=== PATIENT | female | born 1960 | race Caucasian/White ===

== ENCOUNTER 2016-12-08 12:04 | Emergency (ER) | payer SELFPAY ==
[~2016-12-08] VITALS: Ht 167.6 cm; Wt 80.0 kg
[~2016-12-08 12:04] MED LIST: ALPR.25 PO; BUPR-197 PO; CELE10TA9 PO; HYOS0.129 SL; LISI-360 PO; LORTA5; NEXI40CA PO; OSEL75 PO; ZOFR4TAB3 SL
[2016-12-08 12:06] VITALS: BP 133/66; PULSE 86; RESP 20; TEMP 98.4; O2SAT 98
[2016-12-08] MEDS ORDERED: SODIUM CHLOR 0.9% 1000 ML INJ 1,000 ML IV SCH ×2 (12:22→12:26)
--- NOTE | 2016-12-08 12:28 | PD ---
HPI Chief Complaint: GI Complaint Time Seen by Provider: 12:12 Travel History International Travel<30 days: No Contact w/Intl Traveler<30days: No Traveled to known affect area: No History of Present Illness HPI This is a 56-year-old female who presents for evaluation nausea vomiting diarrhea. Symptoms started 5 days ago. Initially the primary symptoms were watery brown diarrhea, 6-7 episodes daily. Since then she has developed vomiting which is now become dry heaving. The diarrhea has improved and she now only has a little bit of diarrhea at a time. She feels dehydrated. She reports decreased urination. She denies abdominal pain, fevers or chills, flank pain, chest pain or shortness of breath, cough or congestion, vaginal bleeding or discharge. No sick contacts. No dietary changes. No recent travel. No recent antibiotic use. No other complaints. 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) Hysterectomy: No Social History Alcohol Use: No Tobacco Use: No Substance Use: No Allergies-Medications (Allergen,Severity, Reaction): Coded Allergies: diatrizoate meglumine (Unverified Allergy, Intermediate, SWELLING, 12/08/16) gadobenic acid (Unverified Allergy, Intermediate, SWELLING, 12/08/16) gadodiamide (Unverified Allergy, Intermediate, SWELLING, 12/08/16) gadoteridol (Unverified Allergy, Intermediate, SWELLING, 12/08/16) iodixanol (Unverified Allergy, Intermediate, SWELLING, 12/08/16) iohexol (Unverified Allergy, Intermediate, SWELLING, 12/08/16) Reported Meds & Prescriptions Reported Meds & Active Scripts Active Zofran (Ondansetron HCl) 4 Mg Tab 4 Mg PO Q6HR PRN Review of Systems Except as stated in HPI: all other systems reviewed are Neg Physical Exam Narrative GENERAL: Well-developed well-nourished female in no acute distress SKIN: Warm and dry. HEAD: Atraumatic. Normocephalic. EYES: Pupils equal and round. No scleral icterus. No injection or drainage. ENT: No nasal bleeding or discharge. Mucous membranes pink and moist. NECK: Trachea midline. No JVD. CARDIOVASCULAR: Regular rate and rhythm. No murmur appreciated. RESPIRATORY: No accessory muscle use. Clear to auscultation. Breath sounds equal bilaterally. GASTROINTESTINAL: Abdomen soft, non-tender, nondistended. Hepatic and splenic margins not palpable. MUSCULOSKELETAL: No obvious deformities. No edema. NEUROLOGICAL: Awake and alert. No obvious cranial nerve deficits. Motor grossly within normal limits. Normal speech. PSYCHIATRIC: Appropriate mood and affect; insight and judgment normal. Data Data Last Documented VS Vital Signs Date Time Temp Pulse Resp B/P (MAP) Pulse Ox O2 Delivery O2 Flow Rate FiO2 12/08/16 12:57 98.8 71 14 127/62 (83) 96 Room Air Orders Orders Complete Blood Count With Diff (12/08/16 12:22) Comprehensive Metabolic Panel (12/08/16 12:22) Lipase (12/08/16 12:22) Urinalysis - C+S If Indicated (12/08/16 12:22) Iv Access Insert/Monitor (12/08/16 12:22) Ecg Monitoring (12/08/16 12:22) Oximetry (12/08/16 12:22) Ondansetron Inj (Zofran Inj) (12/08/16 12:30) Sodium Chlor 0.9% 1000 Ml Inj (Ns 1000 M (12/08/16 12:22) Sodium Chloride 0.9% Flush (Ns Flush) (12/08/16 12:30) C Diff Toxin Pcr (12/08/16 12:22) Enteric Path (Stool) (12/08/16 12:22) Sodium Chlor 0.9% 1000 Ml Inj (Ns 1000 M (12/08/16 12:26) Oral Rehydration (12/08/16 13:27) Acetaminophen (Tylenol) (12/08/16 13:45) Metoclopramide Inj (Reglan Inj) (12/08/16 14:00) Tramadol (Ultram) (12/08/16 14:15) Labs Laboratory Tests Test 9/6/17 12:34 12/08/16 12:35 12/08/16 12:55 White Blood Count 3.8 TH/MM3 Red Blood Count 4.01 MIL/MM3 Hemoglobin 12.0 GM/DL Hematocrit 37.4 % Mean Corpuscular Volume 93.3 FL Mean Corpuscular Hemoglobin 30.0 PG Mean Corpuscular Hemoglobin Concent 32.2 % Red Cell Distribution Width 13.6 % Platelet Count 261 TH/MM3 Mean Platelet Volume 8.6 FL Neutrophils (%) (Auto) 57.0 % Lymphocytes (%) (Auto) 26.9 % Monocytes (%) (Auto) 11.8 % Eosinophils (%) (Auto) 3.3 % Basophils (%) (Auto) 1.0 % Neutrophils # (Auto) 2.2 TH/MM3 Lymphocytes # (Auto) 1.0 TH/MM3 Monocytes # (Auto) 0.4 TH/MM3 Eosinophils # (Auto) 0.1 TH/MM3 Basophils # (Auto) 0.0 TH/MM3 CBC Comment DIFF FINAL Differential Comment Blood Urea Nitrogen 9 MG/DL Creatinine 1.08 MG/DL Random Glucose 98 MG/DL Total Protein 7.4 GM/DL Albumin 3.6 GM/DL Calcium Level 8.7 MG/DL Alkaline Phosphatase 80 U/L Aspartate Amino Transf (AST/SGOT) 39 U/L Alanine Aminotransferase (ALT/SGPT) 28 U/L Total Bilirubin 0.4 MG/DL Sodium Level 140 MEQ/L Potassium Level 4.7 MEQ/L Chloride Level 112 MEQ/L Carbon Dioxide Level 19.5 MEQ/L Anion Gap 9 MEQ/L Estimat Glomerular Filtration Rate 53 ML/MIN Lipase 205 U/L Urine Color YELLOW Urine Turbidity HAZY Urine pH 6.5 Urine Specific [place] 1.016 Urine Protein NEG mg/dL Urine Glucose (UA) NEG mg/dL Urine Ketones 40 mg/dL Urine Occult Blood TRACE Urine Nitrite NEG Urine Bilirubin NEG Urine Urobilinogen LESS THAN 2.0 MG/DL Urine Leukocyte Esterase LARGE Urine RBC 1 /hpf Urine WBC 2 /hpf Urine Squamous Epithelial Cells 2 /hpf Urine Transitional Epithelial Cells 2 /hpf Urine Hyaline Casts 1 /lpf Microscopic Urinalysis Comment CULT NOT INDICATED MDM Medical Decision Making Medical Screen Exam Complete: Yes Emergency Medical Condition: Yes Medical Record Reviewed: Yes Differential Diagnosis Gastroenteritis, colitis, diverticulitis, dehydration, electrolyte abnormality Narrative Course 56-year-old female here for evaluation of 5 days of nausea vomiting and diarrhea. Her abdomen is soft and nontender. She is afebrile, not tachycardic. Plan is for basic lab work. She'll be given 2 L of IV fluids and 4 mg of Zofran. Additional Reglan dosage has been ordered. Upon recheck the patient does feel improved. Her nausea has significantly improved. She was able to tolerate some oral rehydration. She requested Tylenol for headache. The patient's C. difficile and stool cultures are currently pending. Her lab work is found to be very reassuring. Suspect a viral gastroenteritis. The patient will be discharged with prescription for Zofran. We discussed signs and symptoms that weren't returning to the emergency room. She is stable for discharge. Prior to discharge I received a call from microbiology stating that they do not have enough stool specimen to perform the stool culture. They do have enough for the C. difficile PCR. The patient is unable to provide any additional stool at this time. She is encouraged to follow-up with her primary care physician for stool culture if symptoms persist. Diagnosis Primary Impression: Gastroenteritis Departure Forms: Tests/Procedures, Work Release Enter return to work date: Dec 10, 2016 Additional Instructions: Medication as prescribed. Slowly advance diet as tolerated. As discussed, return for any acutely new or worsening symptoms such as abdominal pain, fevers, persistent uncontrolled vomiting/diarrhea, dehydration, dizziness, severe weakness. Med/Other Pt SpecificInfo: Prescription(s) given Scripts Ondansetron (Zofran) 4 Mg Tab 4 MG PO Q6HR Y for NAUSEA OR VOMITING, #20 TAB 0 Refills Prov: Luis Anderson MD 12/08/16 Disposition: 01 DISCHARGE HOME Condition: Stable Pascual Portillo Dec 08, 2016 12:28
[2016-12-08] MEDS ORDERED: SODIUM CHLORIDE 0.9% FLUSH 10 ML FLUSH IV FLUSH PRN (12:30)
[2016-12-08] MEDS ORDERED: ONDANSETRON HCL 4 MG/2 ML VIAL IVP ONE (12:30)
[2016-12-08 12:53] LABS: AUTOMATED NEUTROPHIL # 2.2 TH/MM3 (1.8-7.7); EOSINOPHIL # 0.1 TH/MM3 (0-0.4); EOSINOPHIL % 3.3 % (0.0-4.0); HEMATOCRIT 37.4 % (35.0-46.0); HEMO FLAGS DIFF FINAL; LYMPH % 26.9 % (9.0-44.0); MEAN CELL VOLUME 93.3 FL (80.0-100.0); MEAN CORPUSCULAR HGB CONC 32.2 % (32.0-36.0); MONO % 11.8 % (0.0-8.0); PLATELET COUNT 261 TH/MM3 (150-450); RED BLOOD COUNT 4.01 MIL/MM3 (4.00-5.30); RED CELL DISTRIBUTION WIDTH 13.6 % (11.6-17.2); WHITE BLOOD COUNT 3.8 TH/MM3 (4.0-11.0)
[2016-12-08 12:57] VITALS: BP 127/62; PULSE 71; RESP 14; TEMP 98.8; O2SAT 96
[2016-12-08 13:15] LABS: ALKALINE PHOSPHATASE 80 U/L (45-117); TOTAL BILIRUBIN ADULT 0.4 MG/DL (0.2-1.0)
[2016-12-08 13:18] LABS: ALT (GPT) 28 U/L (10-53); ANION GAP 9 MEQ/L (5-15); AST (GOT) 39 U/L (15-37); BICARBONATE 19.5 MEQ/L (21.0-32.0); BLOOD UREA NITROGEN 9 MG/DL (7-18); CHLORIDE 112 MEQ/L (98-107); GLOMERULAR FILTRATION RATE 53 ML/MIN (>89); SODIUM (NA) 140 MEQ/L (136-145)
[2016-12-08 13:19] LABS: POTASSIUM 4.7 MEQ/L (3.5-5.1)
[2016-12-08] MEDS ORDERED: ZOFR4TAB PO (13:30)
[2016-12-08 13:36] LABS: BLOOD, URINE TRACE (NEG); COMMENT (UR) CULT NOT INDICATED; CULTURE IF INDICATED CULT NOT INDICATED; GLUCOSE,URINE NEG (NEG); HYALINE CAST, URINE 1 /lpf (RARE); KETONE, URINE 40 mg/dL (NEG); NITRITE,URINE NEG (NEG); PH, URINE 6.5 (5.0-8.5); SQUAMOUS EPITHELIAL CELL URINE 2 /hpf (0-5); TRANSITIONAL EPI CELLS, URINE 2 /hpf; URINE COLOR YELLOW (YELLW/STRAW)
[2016-12-08] MEDS ORDERED: ACETAMINOPHEN 325 MG TAB PO ONE (13:45)
[2016-12-08] MEDS ORDERED: METOCLOPRAMIDE HCL 10 MG/2 ML VIAL IV PUSH ONE (14:00)
[2016-12-08] MEDS ORDERED: traMADol HCL 50 MG TAB PO ONE (14:15)
[2016-12-08 15:19] LABS: C. DIFF EPI 027 PRESUMPTIVE NEGATIVE (NEGATIVE)
== END 2016-12-08 14:56 | disposition home or self-care (01) ==
LOC: NEPD 12:04
DX: K52.9 Noninfective gastroenteritis and colitis, unspecified (principal); R51 Headache; F41.9 Anxiety disorder, unspecified; F32.9 Major depressive disorder, single episode, unspecified; K21.9 Gastro-esophageal reflux disease without esophagitis; I10 Essential (primary) hypertension; Z88.8 Allergy status to other drugs, medicaments and biological substances
CPT/HCPCS: 80053; 81001; 83690; 85025; 87493; 96361; 96374; 96375; 99284; J2405; J2765; J7030

== ENCOUNTER 2017-04-08 07:35 | Emergency (ER) | payer BC ==
[~2017-04-08] VITALS: Ht 165.1 cm; Wt 71.0 kg
[~2017-04-08 07:35] MED LIST changes: -ALPR.25 PO; -BUPR-197 PO; -CELE10TA9 PO; -HYOS0.129 SL; -LISI-360 PO; -LORTA5; -NEXI40CA PO; -OSEL75 PO; +ZOFR4TAB PO; -ZOFR4TAB3 SL
[2017-04-08 07:37] VITALS: BP 113/58; PULSE 103; RESP 16; TEMP 97.9; O2SAT 98
[2017-04-08] MEDS ORDERED: LISI-515 PO (07:44)
[2017-04-08] MEDS ORDERED: WELLTAB39 PO (07:44)
--- NOTE | 2017-04-08 07:57 | PD ---
HPI Chief Complaint: GI Complaint Time Seen by Provider: 07:49 Travel History International Travel<30 days: No Contact w/Intl Traveler<30days: No Traveled to known affect area: No History of Present Illness HPI The patient was seen and examined in the presence of the nurse. This patient complains of nausea and vomiting. She is worried about being dehydrated. She has generalized weakness. She says she can't keep anything down. Duration 10 days. She had diarrhea but that resolved. She's got runny nose congestion cough. No alleviating factors. No exacerbating factors. Symptom severity is moderate PFSH Past Medical History Hx Anticoagulant Therapy: No Anxiety: Yes Depression: Yes Cardiovascular Problems: Yes (HTN) Diabetes: No Diminished Hearing: No GERD: Yes Hypertension: Yes Musculoskeletal: Yes (HERNIATED DISC-NECK) Immunizations Current: Yes Ulcer: Yes (HX OF BLEEDING ULCER) Influenza Vaccination: No ?: Not Menopausal: Yes : 7 Para: 4 Miscarriage: 3 Ectopic : Yes Ovarian Cysts: Yes Tubal Ligation: Yes Past Surgical History Abdominal Surgery: Yes (explor lap) Section: No Gynecologic Surgery: Yes ( NOTED IN [employer]) Hysterectomy: No Social History Alcohol Use: No Tobacco Use: No Substance Use: No Allergies-Medications (Allergen,Severity, Reaction): Coded Allergies: diatrizoate meglumine (Unverified Allergy, Intermediate, SWELLING, 04/08/17) gadobenic acid (Unverified Allergy, Intermediate, SWELLING, 04/08/17) gadodiamide (Unverified Allergy, Intermediate, SWELLING, 04/08/17) gadoteridol (Unverified Allergy, Intermediate, SWELLING, 04/08/17) iodixanol (Unverified Allergy, Intermediate, SWELLING, 04/08/17) iohexol (Unverified Allergy, Intermediate, SWELLING, 04/08/17) Reported Meds & Prescriptions Reported Meds & Active Scripts Active Reported Lisinopril 20 Mg Tab 20 Mg PO DAILY Wellbutrin Xl 24 HR (Bupropion HCl) 300 Mg Tab 300 Mg PO DAILY Review of Systems General / Constitutional: No: Fever Eyes: No: Visual changes HENT: No: Headaches Cardiovascular: No: Chest Pain or Discomfort Respiratory: No: Shortness of Breath Gastrointestinal: Positive: Nausea, Vomiting, Diarrhea, No: Abdominal Pain Genitourinary: No: Dysuria Musculoskeletal: Positive: Weakness, No: Pain Skin: No Rash Neurologic: Positive: Weakness Psychiatric: No: Depression Endocrine: No: Polydipsia Hematologic/Lymphatic: No: Easy Bruising Physical Exam Narrative GENERAL: Well-nourished, well-developed patient in no apparent distress. SKIN: Focused skin assessment reveals no rash and nodules. Skin is Warm and dry. HEAD: Atraumatic. Normocephalic. EYES: Pupils equal and round. No scleral icterus. No injection or drainage. ENT: No nasal bleeding or discharge. Mucous membranes pink and moist. NECK: Trachea midline. No JVD. CARDIOVASCULAR: Regular rate and rhythm. No murmur appreciated. RESPIRATORY: No accessory muscle use. Clear to auscultation. Breath sounds equal bilaterally. GASTROINTESTINAL: Abdomen soft, non-tender, nondistended. Hepatic and splenic margins not palpable. MUSCULOSKELETAL: No obvious deformities. No clubbing. No cyanosis. No edema. NEUROLOGICAL: Awake and alert. No obvious cranial nerve deficits. Motor grossly within normal limits. Normal speech. PSYCHIATRIC: Appropriate mood and affect; insight and judgment normal. Data Data Last Documented VS Vital Signs Date Time Temp Pulse Resp B/P (MAP) Pulse Ox O2 Delivery O2 Flow Rate FiO2 04/08/17 10:55 18 04/08/17 10:52 76 103/67 (79) 98 Room Air 04/08/17 07:37 97.9 Orders Orders Basic Metabolic Panel (Bmp) (04/08/17 07:53) Complete Blood Count With Diff (04/08/17 07:53) Iv Access Insert/Monitor (04/08/17 07:53) Sodium Chloride 0.9% Flush (Ns Flush) (04/08/17 08:00) Ondansetron Inj (Zofran Inj) (04/08/17 08:00) Sodium Chlor 0.9% 1000 Ml Inj (Ns 1000 M (04/08/17 08:00) Ondansetron Inj (Zofran Inj) (04/08/17 10:00) Ketorolac Inj (Toradol Inj) (04/08/17 10:00) Labs Laboratory Tests Test 04/08/17 07:55 White Blood Count 6.6 TH/MM3 Red Blood Count 4.79 MIL/MM3 Hemoglobin 13.9 GM/DL Hematocrit 44.3 % Mean Corpuscular Volume 92.4 FL Mean Corpuscular Hemoglobin 28.9 PG Mean Corpuscular Hemoglobin Concent 31.3 % Red Cell Distribution Width 14.6 % Platelet Count 272 TH/MM3 Mean Platelet Volume 8.6 FL Neutrophils (%) (Auto) 68.2 % Lymphocytes (%) (Auto) 19.1 % Monocytes (%) (Auto) 10.0 % Eosinophils (%) (Auto) 1.8 % Basophils (%) (Auto) 0.9 % Neutrophils # (Auto) 4.4 TH/MM3 Lymphocytes # (Auto) 1.3 TH/MM3 Monocytes # (Auto) 0.7 TH/MM3 Eosinophils # (Auto) 0.1 TH/MM3 Basophils # (Auto) 0.1 TH/MM3 CBC Comment DIFF FINAL Differential Comment Blood Urea Nitrogen 15 MG/DL Creatinine 1.10 MG/DL Random Glucose 122 MG/DL Calcium Level 8.7 MG/DL Sodium Level 139 MEQ/L Potassium Level 3.5 MEQ/L Chloride Level 108 MEQ/L Carbon Dioxide Level 17.4 MEQ/L Anion Gap 14 MEQ/L Estimat Glomerular Filtration Rate 51 ML/MIN MDM Medical Decision Making Medical Screen Exam Complete: Yes Emergency Medical Condition: Yes Medical Record Reviewed: Yes Differential Diagnosis Flu syndrome, dehydration, gastroenteritis, colitis Narrative Course I have reviewed the patient's electronic medical record. IV placed I gave her IV Zofran and 1 L normal saline IV bolus CBC is normal Metabolic profile is normal I gave her a second dose of Zofran and a dose of Toradol. Zofran prescribed. Patient stable for outpatient follow-up. Diagnosis Primary Impression: Acute viral syndrome Additional Impressions: Nausea and vomiting Qualified Codes: R11.2 - Nausea with vomiting, unspecified Generalized weakness Additional Instructions: The patient was advised to follow up with their physician and return if they worsen. I have recommended clear liquids for 24 hours, then gradually advance as tolerated. Med/Other Pt SpecificInfo: Prescription(s) given Scripts Ondansetron (Zofran) 4 Mg Tab 4 MG PO Q6HR Y for NAUSEA OR VOMITING, #20 TAB 0 Refills Prov: Lang Rosenberg MD 04/08/17 Disposition: 01 DISCHARGE HOME Condition: Stable Lang Rosenberg MD Apr 08, 2017 07:57
[2017-04-08] MEDS ORDERED: SODIUM CHLOR 0.9% 1000 ML INJ 1,000 ML IV ONE (08:00)
[2017-04-08] MEDS ORDERED: SODIUM CHLORIDE 0.9% FLUSH 10 ML FLUSH IV FLUSH PRN (08:00)
[2017-04-08] MEDS ORDERED: ONDANSETRON HCL 4 MG/2 ML VIAL IVP ONE ×2 (08:00→10:00)
[2017-04-08 08:03] LABS: AUTOMATED NEUTROPHIL # 4.4 TH/MM3 (1.8-7.7); BASOPHIL # 0.1 TH/MM3 (0-0.2); BASOPHIL % 0.9 % (0.0-2.0); EOSINOPHIL # 0.1 TH/MM3 (0-0.4); EOSINOPHIL % 1.8 % (0.0-4.0); HEMATOCRIT 44.3 % (35.0-46.0); HEMOGLOBIN 13.9 GM/DL (11.6-15.3); LYMPH % 19.1 % (9.0-44.0); LYMPHOCYTE # 1.3 TH/MM3 (1.0-4.8); MEAN CELL VOLUME 92.4 FL (80.0-100.0); MEAN CORPUSCULAR HEMOGLOBIN 28.9 PG (27.0-34.0); MEAN CORPUSCULAR HGB CONC 31.3 % (32.0-36.0); MEAN PLATELET VOLUME 8.6 FL (7.0-11.0); MONOCYTE # 0.7 TH/MM3 (0-0.9); NEUT % 68.2 % (16.0-70.0); PLATELET COUNT 272 TH/MM3 (150-450); RED BLOOD COUNT 4.79 MIL/MM3 (4.00-5.30); RED CELL DISTRIBUTION WIDTH 14.6 % (11.6-17.2); WHITE BLOOD COUNT 6.6 TH/MM3 (4.0-11.0)
[2017-04-08 08:20] LABS: BICARBONATE 17.4 MEQ/L (21.0-32.0); CALCIUM 8.7 MG/DL (8.5-10.1)
[2017-04-08 08:24] LABS: CREATININE 1.1 MG/DL (0.50-1.00)
[2017-04-08 09:19] VITALS: BP 105/65; PULSE 77; RESP 18; O2SAT 98
[2017-04-08] MEDS ORDERED: KETOROLAC TROMETHAMINE 30 MG/ML (IVP) VIAL IV PUSH ONE (10:00)
[2017-04-08 10:52] VITALS: BP 103/67; PULSE 76; RESP 18; O2SAT 98
[2017-04-08 10:55] VITALS: RESP 18
[2017-04-08] MEDS ORDERED: ZOFR4TAB PO (11:32)
== END 2017-04-08 11:48 | disposition home or self-care (01) ==
LOC: PHED 07:35
DX: B34.9 Viral infection, unspecified (principal); F41.9 Anxiety disorder, unspecified; F32.9 Major depressive disorder, single episode, unspecified; I10 Essential (primary) hypertension; Z79.899 Other long term (current) drug therapy; Z88.8 Allergy status to other drugs, medicaments and biological substances
CPT/HCPCS: 80048; 85025; 96361; 96374; 96375; 96376; 99284; J1885; J2405; J7030

== ENCOUNTER 2017-07-09 19:57 | Emergency (ER) | payer BC ==
[~2017-07-09] VITALS: Ht 167.6 cm; Wt 70.0 kg
[~2017-07-09 19:57] MED LIST changes: +LISI-515 PO; +WELLTAB39 PO
[2017-07-09 21:20] VITALS: BP 102/48; PULSE 76; RESP 16; TEMP 97.6; O2SAT 100
[2017-07-09] MEDS ORDERED: SODIUM CHLOR 0.9% 1000 ML INJ 1,000 ML IV ONE (21:43)
[2017-07-09] MEDS ORDERED: SODIUM CHLORIDE 0.9% FLUSH 10 ML FLUSH IVF PRN (21:45)
[2017-07-09] MEDS ORDERED: KETOROLAC TROMETHAMINE 30 MG/ML (IVP) VIAL IV PUSH ONE (21:45)
[2017-07-09 21:53] VITALS: O2SAT 100
[2017-07-09 21:54] VITALS: BP_SYST 101; BP_SYST 104; BP_SYST 106; BP_DIAS 54; BP_DIAS 57; BP_DIAS 61; RESP 18
[2017-07-09 22:43] LABS: AUTOMATED NEUTROPHIL # 2.6 TH/MM3 (1.8-7.7); BASOPHIL # 0.1 TH/MM3 (0-0.2); EOSINOPHIL # 0.3 TH/MM3 (0-0.4); EOSINOPHIL % 4.9 % (0.0-4.0); HEMATOCRIT 36.3 % (35.0-46.0); LYMPH % 33.8 % (9.0-44.0); LYMPHOCYTE # 1.8 TH/MM3 (1.0-4.8); MEAN CORPUSCULAR HEMOGLOBIN 31.4 PG (27.0-34.0); MEAN PLATELET VOLUME 9.3 FL (7.0-11.0); MONO % 11.4 % (0.0-8.0); MONOCYTE # 0.6 TH/MM3 (0-0.9); NEUT % 48.9 % (16.0-70.0); PLATELET COUNT 241 TH/MM3 (150-450); RED BLOOD COUNT 3.82 MIL/MM3 (4.00-5.30); RED CELL DISTRIBUTION WIDTH 13.4 % (11.6-17.2); WHITE BLOOD COUNT 5.2 TH/MM3 (4.0-11.0)
[2017-07-09 22:44] LABS: BILIRUBIN, URINE NEG (NEG); BLOOD, URINE NEG (NEG); GLUCOSE,URINE NEG (NEG); HYALINE CAST, URINE 16 /lpf (RARE); KETONE, URINE NEG (NEG); NITRITE,URINE NEG (NEG); PH, URINE 5.5 (5.0-8.5); SQUAMOUS EPITHELIAL CELL URINE 2 /hpf (0-5); URINE COLOR YELLOW (YELLW/STRAW); URINE LEUKOCYTE ESTERASE SMALL (NEG)
--- NOTE | 2017-07-09 22:55 | RADRPT ---
EXAM DATE/TIME: 07/09/2017 22:30 [facility] COMPARISON: No previous studies available for comparison. INDICATIONS : Cephalgia. RADIATION DOSE: 56.35 CTDIvol (mGy) MEDICAL HISTORY : Cardiovascular disease. Hypertension. SURGICAL HISTORY : None. ENCOUNTER: Initial ACUITY: 1 day PAIN SCALE: 5/10 LOCATION: cranial TECHNIQUE: Multiple contiguous axial images were obtained of the head. Using automated exposure control and adj ustment of the mA and/or kV according to patient size, radiation dose was kept as low as reasonably a chievable to obtain optimal diagnostic quality images. DICOM format image data is available electro nically for review and comparison. FINDINGS: CEREBRUM: The ventricles are normal for age. No evidence of midline shift, mass lesion, hemorrhage or acute in farction. No extra-axial fluid collections are seen. POSTERIOR FOSSA: The cerebellum and brainstem are intact. The 4th ventricle is midline. The cerebellopontine angle i s unremarkable. EXTRACRANIAL: The visualized portion of the orbits is intact. SKULL: The calvaria is intact. No evidence of skull fracture. CONCLUSION: No acute disease. Froilan Melo MD on July 09, 2017 at 22:52 Board Certified Radiologist. This report was verified electronically.
[2017-07-09 23:00] LABS: INTERNATIONAL NORMALIZED RATIO 1.1 RATIO; PROTHROMBIN TIME - PATIENT 10.7 SEC (9.8-11.6)
[2017-07-09 23:22] LABS: ALBUMIN 3.5 GM/DL (3.4-5.0); ALT (GPT) 16 U/L (10-53); AST (GOT) 15 U/L (15-37); BLOOD UREA NITROGEN 23 MG/DL (7-18); CALCIUM 8.5 MG/DL (8.5-10.1); CHLORIDE 109 MEQ/L (98-107); CREATININE 1.16 MG/DL (0.50-1.00); GLOMERULAR FILTRATION RATE 48 ML/MIN (>89); GLUCOSE,RANDOM 82 MG/DL (74-106); SODIUM (NA) 139 MEQ/L (136-145)
[2017-07-09 23:26] LABS: ALKALINE PHOSPHATASE 76 U/L (45-117); TOTAL BILIRUBIN ADULT 0.3 MG/DL (0.2-1.0); TOTAL PROTEIN 6.7 GM/DL (6.4-8.2); TROPONIN I LESS THAN 0.02 NG/ML (0.02-0.05)
--- NOTE | 2017-07-10 00:24 | PD ---
HPI Chief Complaint: Headache Time Seen by Provider: 21:42 Travel History International Travel<30 days: No Contact w/Intl Traveler<30days: No Traveled to known affect area: No History of Present Illness HPI Patient is a 57 year old female who comes in complaining of headache with a near syncopal episode. She says she was at work when she felt lightheaded and then developed a slight headache. She says she sat down and had something to eat and felt a little bit better, but she was told to go home and that she needed to come to the emergency department. She says that when they took her blood pressure, it was low. She does take lisinopril daily, but says she recently lost a lot of weight. She denies any chest pain, shortness of breath. She denies blurred vision, nausea or vomiting. She denies fever chills. Severity is mild to moderate. PFSH Past Medical History Hx Anticoagulant Therapy: No Anxiety: Yes Depression: Yes Cardiovascular Problems: Yes (HTN) Diabetes: No Diminished Hearing: No GERD: Yes Hypertension: Yes Musculoskeletal: Yes (HERNIATED DISC-NECK) Immunizations Current: Yes Ulcer: Yes (HX OF BLEEDING ULCER) ?: Not Menopausal: Yes : 7 Para: 4 Miscarriage: 3 Ectopic : Yes Ovarian Cysts: Yes Tubal Ligation: Yes Past Surgical History Abdominal Surgery: Yes (explor lap) Section: No Gynecologic Surgery: Yes ( NOTED IN [employer]) Hysterectomy: No Social History Alcohol Use: No Tobacco Use: No Substance Use: No Allergies-Medications (Allergen,Severity, Reaction): Coded Allergies: diatrizoate meglumine (Unverified Allergy, Intermediate, SWELLING, 04/08/17) gadobenic acid (Unverified Allergy, Intermediate, SWELLING, 04/08/17) gadodiamide (Unverified Allergy, Intermediate, SWELLING, 04/08/17) gadoteridol (Unverified Allergy, Intermediate, SWELLING, 04/08/17) iodixanol (Unverified Allergy, Intermediate, SWELLING, 04/08/17) iohexol (Unverified Allergy, Intermediate, SWELLING, 04/08/17) Reported Meds & Prescriptions Reported Meds & Active Scripts Active Zofran (Ondansetron HCl) 4 Mg Tab 4 Mg PO Q6HR PRN Reported Lisinopril 20 Mg Tab 20 Mg PO DAILY Wellbutrin Xl 24 HR (Bupropion HCl) 300 Mg Tab 300 Mg PO DAILY Review of Systems Except as stated in HPI: all other systems reviewed are Neg General / Constitutional: No: Fever, Chills Eyes: No: Blurred Vision HENT: Positive: Headaches, Lightheadedness Cardiovascular: No: Chest Pain or Discomfort Respiratory: No: Shortness of Breath Gastrointestinal: No: Nausea, Vomiting Musculoskeletal: No: Myalgias, Edema Skin: No Rash, No Change in Pigmentation Neurologic: No: Weakness, Syncope Physical Exam Narrative GENERAL: Awake and alert, in no acute distress. SKIN: Focused skin assessment warm/dry. HEAD: Atraumatic. Normocephalic. EYES: Pupils equal and round. No scleral icterus. Extraocular movements intact. ENT: Mucous membranes pink and moist. NECK: Trachea midline. No JVD. CARDIOVASCULAR: Regular rate and rhythm. No murmur appreciated. RESPIRATORY: No accessory muscle use. Clear to auscultation. Breath sounds equal bilaterally. GASTROINTESTINAL: Abdomen soft, non-tender, nondistended. MUSCULOSKELETAL: No obvious deformities. No clubbing. No cyanosis. No edema. NEUROLOGICAL: Awake and alert. No obvious cranial nerve deficits. Motor grossly within normal limits. Normal speech. PSYCHIATRIC: Appropriate mood and affect; insight and judgment normal. Data Data Last Documented VS Vital Signs Date Time Temp Pulse Resp B/P (MAP) Pulse Ox O2 Delivery O2 Flow Rate FiO2 07/09/17 21:54 63 18 101/54 (70) 65 18 104/57 (73) 62 18 106/61 (76) 07/09/17 21:53 100 Room Air 07/09/17 21:20 97.6 Orders Orders Electrocardiogram (07/09/17 21:43) Complete Blood Count With Diff (07/09/17 21:43) Comprehensive Metabolic Panel (07/09/17 21:43) Troponin I (07/09/17 21:43) Act Partial Throm Time (Ptt) (07/09/17 21:43) Prothrombin Time / Inr (Pt) (07/09/17 21:43) Urinalysis - C+S If Indicated (07/09/17 21:43) Ct Brain W/O Iv Contrast(Rout) (07/09/17 21:43) Ecg Monitoring (07/09/17 21:43) Iv Access Insert/Monitor (07/09/17 21:43) Oximetry (07/09/17 21:43) Sodium Chloride 0.9% Flush (Ns Flush) (07/09/17 21:45) Sodium Chlor 0.9% 1000 Ml Inj (Ns 1000 M (07/09/17 21:43) Ketorolac Inj (Toradol Inj) (07/09/17 21:45) Labs Laboratory Tests Test 07/09/17 22:11 07/09/17 22:24 White Blood Count 5.2 TH/MM3 Red Blood Count 3.82 MIL/MM3 Hemoglobin 12.0 GM/DL Hematocrit 36.3 % Mean Corpuscular Volume 95.0 FL Mean Corpuscular Hemoglobin 31.4 PG Mean Corpuscular Hemoglobin Concent 33.0 % Red Cell Distribution Width 13.4 % Platelet Count 241 TH/MM3 Mean Platelet Volume 9.3 FL Neutrophils (%) (Auto) 48.9 % Lymphocytes (%) (Auto) 33.8 % Monocytes (%) (Auto) 11.4 % Eosinophils (%) (Auto) 4.9 % Basophils (%) (Auto) 1.0 % Neutrophils # (Auto) 2.6 TH/MM3 Lymphocytes # (Auto) 1.8 TH/MM3 Monocytes # (Auto) 0.6 TH/MM3 Eosinophils # (Auto) 0.3 TH/MM3 Basophils # (Auto) 0.1 TH/MM3 CBC Comment DIFF FINAL Differential Comment Prothrombin Time 10.7 SEC Prothromb Time International Ratio 1.1 RATIO Activated Partial Thromboplast Time 23.6 SEC Blood Urea Nitrogen 23 MG/DL Creatinine 1.16 MG/DL Random Glucose 82 MG/DL Total Protein 6.7 GM/DL Albumin 3.5 GM/DL Calcium Level 8.5 MG/DL Alkaline Phosphatase 76 U/L Aspartate Amino Transf (AST/SGOT) 15 U/L Alanine Aminotransferase (ALT/SGPT) 16 U/L Total Bilirubin 0.3 MG/DL Sodium Level 139 MEQ/L Potassium Level 4.4 MEQ/L Chloride Level 109 MEQ/L Carbon Dioxide Level 19.0 MEQ/L Anion Gap 11 MEQ/L Estimat Glomerular Filtration Rate 48 ML/MIN Troponin I LESS THAN 0.02 NG/ML Urine Color YELLOW Urine Turbidity CLEAR Urine pH 5.5 Urine Specific [place] 1.028 Urine Protein TRACE mg/dL Urine Glucose (UA) NEG mg/dL Urine Ketones NEG mg/dL Urine Occult Blood NEG Urine Nitrite NEG Urine Bilirubin NEG Urine Urobilinogen LESS THAN 2.0 MG/DL Urine Leukocyte Esterase SMALL Urine RBC 1 /hpf Urine WBC 6 /hpf Urine Squamous Epithelial Cells 2 /hpf Urine Hyaline Casts 16 /lpf Microscopic Urinalysis Comment CULT NOT INDICATED MDM Medical Decision Making Medical Screen Exam Complete: Yes Emergency Medical Condition: Yes Medical Record Reviewed: Yes Interpretation(s) ECG shows sinus rhythm at a rate of 55, no ST elevation or depression, normal intervals. Differential Diagnosis Dehydration versus electrolyte abnormality versus migraine Narrative Course Patient is a 57-year-old female comes in after an episode of dizziness and headache at work. Exam shows no neurologic abnormalities. IV established, labs sent. Labs show no acute abnormalities. CT of the head performed shows no acute abnormalities. Patient given IV fluids and Toradol. She reports feeling better. She will be discharged home. Advised to increase her fluid intake. Advised take Tylenol or ibuprofen as needed for pain. Advised return to the ED as needed for any worsening symptoms. Last [address] 07/09/17 [id number] Signed Impressions: Service Date/Time: Sunday, July 09, 2017 22:30 - CONCLUSION: No acute disease. Froilan Melo MD Diagnosis Primary Impression: Dehydration Additional Impression: Dizziness Patient Instructions: Dizziness (ED), General Instructions Additional Instructions: Increase her fluid intake. Follow-up with a primary care doctor. Return to the ED as needed for any worsening symptoms. Disposition: DISCHARGE HOME Condition: Stable Elizabeth Cain MD Jul 10, 2017 00:24
--- NOTE | 2017-07-10 16:46 | EKG ---
Date Performed: 07/09/2017 Time Performed: 21:51:35 PTAGE: 57 years EKG: SINUS BRADYCARDIA Compared to previous tracing, HR is slower, ST-T changes have resolved, Q waves inferiorly less prominent. BORDERLINE ECG PREVIOUS TRACING : 01/15/2009 15.17 DOCTOR: Marcel Horvath Interpretating Date/Time 07/10/2017 16:45:01
== END 2017-07-10 00:30 | disposition home or self-care (01) ==
LOC: NEPC 19:57
DX: E86.0 Dehydration (principal); R42 Dizziness and giddiness; R51 Headache; R55 Syncope and collapse; R00.1 Bradycardia, unspecified; F41.9 Anxiety disorder, unspecified; I10 Essential (primary) hypertension; F32.9 Major depressive disorder, single episode, unspecified; K21.9 Gastro-esophageal reflux disease without esophagitis
CPT/HCPCS: 70450; 80053; 81001; 84484; 85025; 85610; 85730; 93005; 96361; 96374; 99285; J1885; J7030